=== PATIENT | female | born 1985 | race Caucasian/White ===

== ENCOUNTER 2017-07-02 08:33 | Inpatient (IN) | payer OTHER ==
[~2017-07-02] VITALS: Ht 167.6 cm; Wt 102.7 kg
[2017-07-02] VITALS (38 sets, daily range): BP systolic 118–154; BP diastolic 60–91; PULSE 81–121; TEMP 97.7–98.4
[~2017-07-02 08:33] MED LIST: CIPRO 500MG TA500 MG PO; DESYREL 50MG50 MG; EFFEXOR-XR150 MG PO; LOW OGESTREL PO; MOTRIN 800800 MG/TAB PO; PERCOCET 325 MG1 TA2 PO; PHENERGAN 25 TA25 MG PO; PRENATAL1 TA1 PO; SLEEPING PILL; ZOFRAN 4MG T4 MG/TAB PO
[2017-07-02 09:39] LABS: BASO % 0.2 % (0.0-2.0); EOS % 0.2 % (0-4.0); GRAN # 11.3 (1.4-6.5); HEMATOCRIT 39.2 % (37.0-47.0); HEMOGLOBIN 13.1 g/dl (12.5-16.0); LYMPH # 2.6 (1.2-3.4); LYMPH % 16.9 % (20.0-51.0); MEAN CELL VOLUME 88 fl (80.0-100.0); MEAN CORPUSCULAR HEMOGLOBIN 29 pg (27.0-31.0); MEAN CORPUSCULAR HGB CONC 33 g/dl (33.0-37.0); MONO % 6.9 % (1.7-9.3); PLATELET COUNT 255 K/mm3 (130-400); RED BLOOD COUNT 4.48 M/mm3 (4.10-5.30); REDCELL DISTRIBUTION WIDTH-CV 15.2 % (11.5-14.5); WHITE BLOOD COUNT 15.1 K/mm3 (4.8-10.8)
[2017-07-03 00:37] VITALS: BP 149/78; PULSE 88; TEMP 99
[2017-07-03 04:53] VITALS: BP 135/76; PULSE 82; TEMP 98.6
[2017-07-03 08:00] VITALS: BP 129/86; PULSE 90; TEMP 97.5
[2017-07-03 12:00] VITALS: BP 115/72; PULSE 93; TEMP 97.6
[2017-07-03 16:00] VITALS: BP 130/82; PULSE 87; TEMP 97.7
[2017-07-03 22:30] VITALS: BP 125/77; PULSE 89; TEMP 98.3
[2017-07-04] MEDS ORDERED: IBU600 MG PO (09:06)
[2017-07-04 09:17] VITALS: BP 133/76; PULSE 91; TEMP 97.7
== END 2017-07-04 13:00 | disposition home or self-care (01) | DRG 775 ==
LOC: LDRO 08:33 → OB 09:14 → LDR 09:14 → OB 20:00
PROVIDERS: Obstetrics & Gynecology
PROC: 10E0XZZ Delivery of Products of Conception, External Approach (ICD-10-PCS; principal; 2017-07-02)
PROC: 0KQM0ZZ Repair Perineum Muscle, Open Approach (ICD-10-PCS; 2017-07-02)
PROC: 0H57XZZ Destruction of Abdomen Skin, External Approach (ICD-10-PCS; 2017-07-02)
DX: O36.63X0 Maternal care for excessive fetal growth, third trimester, not applicable or unspecified (principal); O36.0130 Maternal care for anti-D [Rh] antibodies, third trimester, not applicable or unspecified; O70.1 Second degree perineal laceration during delivery; O69.81X0 Labor and delivery complicated by cord around neck, without compression, not applicable or unspecified; O99.824 Streptococcus B carrier state complicating childbirth; O99.713 Diseases of the skin and subcutaneous tissue complicating pregnancy, third trimester; L91.8 Other hypertrophic disorders of the skin; Z3A.38 38 weeks gestation of pregnancy; Z37.0 Single live birth
CPT/HCPCS: J2540; J2590; J2791; J7120

== ENCOUNTER → 2017-07-10 | Outpatient (CLI) | payer OTHER ==
[~2017-07-10] MED LIST changes: +IBU600 MG PO
== END ==
LOC: OLC 12:58
DX: Z39.1 Encounter for care and examination of lactating mother (principal); Z71.89 Other specified counseling

== ENCOUNTER → 2019-06-28 | Outpatient (CLI) | payer BC | LOC: COL.RAD 12:00 | DX: Q27.9 Congenital malformation of peripheral vascular system, unspecified (principal); R22.31 Localized swelling, mass and lump, right upper limb | CPT/HCPCS: A9585 ==

== ENCOUNTER → 2021-02-07 | Outpatient (CLI) | payer BC ==
[~2021-02-07] MED LIST changes: +CALCIUM-MAGNES1 EAC1 PO; +MASON NATURAL1200 MG PO; +MASON NATURAL2000 IU PO; +MELATONIN3 M1 PO; +SEROQUEL 1100 MG/TAB PO; +TRILEPTAL 300M300 MG PO; +TRILEPTAL600 MG PO
[2021-02-07 09:42] VITALS: BP 125/89; PULSE 98
[2021-02-07 10:30] VITALS: BP 138/92; PULSE 78
== END ==
LOC: COL.RAD 09:00
DX: Z98.890 Other specified postprocedural states (principal); R22.1 Localized swelling, mass and lump, neck
CPT/HCPCS: 32106